=== PATIENT | female | born 1960 | race Native Hawaiian/Other Pacific Islander ===

== ENCOUNTER 2017-08-01 13:22 | Day surgery (SDC) | payer BC ==
[2017-08-01] MEDS ORDERED: FENTANYL PF 100MCG/2ML VIAL IV ONE (13:23)
[2017-08-01] MEDS ORDERED: LIDOCAINE 2% MDV (20MG/ML) 20ML VIAL IV ONE ×2 (13:23)
[2017-08-01] MEDS ORDERED: PROPOFOL 10 MG/ML VIAL IV ONE (13:23)
--- NOTE | 2017-08-02 13:20 | Operative Note ---
DATE OF SURGERY: 08/01/2017 OPERATION: ESOPHAGOGASTRODUODENOSCOPY with biopsy. PREOPERATIVE DIAGNOSIS: Dyspepsia. POSTOPERATIVE DIAGNOSIS: Normal EGD, rule out occult H pylori infection. PROCEDURE: After informed consent was obtained from the patient, she was placed in the left lateral decubitus position in the endoscopy suite, sedated and monitored by the department of anesthesia. Once sedated, a well-lubricated [id number] gastroscope was placed in the posterior oropharynx and under direct visualization passed to the proximal esophagus. The endoscope was advanced through the proximal, mid, and distal esophagus. The esophagus in its length as well as the GE junction, gastric body, antrum, pylorus, duodenal bulb, and sweep were unremarkable. J-turn view of the proximal stomach were unremarkable. The endoscope was then straightened. Random antral and gastric biopsies were obtained. The endoscope was removed from the patient with no new findings noted. RECOMMENDATIONS: I would suggest the patient undergo an abdominal ultrasound to rule out the possibility of occult cholelithiasis as the source for her bloating symptoms. She should continue her current medical program and await the results of biopsies. As always, thank you for allowing me to participate in the healthcare of your patients. CC: Dr. Lorenzo VILLAR
== END 2017-08-01 15:40 | disposition home or self-care (01) ==
LOC: HOP 13:22
PROVIDERS: ATTEND Internal Medicine Gastroenterology
DX: R10.13 Epigastric pain (principal); K21.9 Gastro-esophageal reflux disease without esophagitis
CPT/HCPCS: 43235; 00731; J3010

== ENCOUNTER 2018-06-19 08:26 | Day surgery (SDC) | payer BC ==
[2018-06-19] MEDS ORDERED: PROPOFOL 10 MG/ML VIAL IV ONE (08:27)
[2018-06-19] MEDS ORDERED: LIDOCAINE 2% MDV (20MG/ML) 20ML VIAL IV ONE (08:27)
--- NOTE | 2018-06-20 08:50 | Operative Note ---
DATE OF SURGERY: 06/19/18 OPERATION: COLONOSCOPY with random biopsy and photo. PREOPERATIVE DIAGNOSIS: Change in bowel habits and screening. POSTOPERATIVE DIAGNOSIS: Normal exam. Rule out microscopic colitis. COMPLICATIONS: None apparent. PREPARATION QUALITY: Good. ESTIMATED BLOOD LOSS: Minimum. SPECIMENS: Random colon. PROCEDURE: After informed consent was obtained from the patient, she was placed in the left lateral decubitus position in the endoscopy suite, sedated and monitored by the department of anesthesia. Digital rectal exam was unremarkable. A well-lubricated [id number] colonoscope was inserted into the rectum and advanced to the cecum. The cecum, cecal bulb, ileocecal valve, appendiceal orifice, ascending colon, transverse colon, descending colon, sigmoid colon, and rectum were free of inflammatory changes, mass lesions, or polyps. Forward and J-turn views of the rectum and anorectum were unremarkable. The endoscope was straightened, the rectal ampulla deflated, and the endoscope was removed. It should be noted random biopsies were obtained throughout the length of the colon to rule out microscopic colitis. RECOMMENDATIONS: We will await the results of tissue histology. The patient should otherwise undergo repeat exam in 10 years. As always, thank you for allowing me to participate in the healthcare of your patients. CC: Lorenzo Wolfe, DO VILLAR
== END 2018-06-19 09:36 | disposition home or self-care (01) ==
LOC: HOP 08:26
PROVIDERS: ATTEND Internal Medicine Gastroenterology
DX: R19.4 Change in bowel habit (principal)

== ENCOUNTER 2019-07-31 07:46 | Day surgery (SDC) | payer BC ==
[~2019-07-31 07:46] MED LIST: ACETAMINOPHEN 1,000 MG/100 ML BTL IVPB ONE; CEFAZOLIN 2 Gram 2 GM/50 ML BAG IVPB ONE
[2019-07-31] MEDS ORDERED: PROPOFOL 10 MG/ML VIAL IV ONE (07:47)
[2019-07-31] MEDS ORDERED: FENTANYL PF 100MCG/2ML VIAL IV ONE (07:47)
[2019-07-31] MEDS ORDERED: MIDAZOLAM HCL 2MG/2ML VIAL IV ONE (07:47)
[2019-07-31] MEDS ORDERED: LIDOCAINE 2% MDV (20MG/ML) 20ML VIAL IV ONE (07:47)
[2019-07-31] MEDS ORDERED: EPHEDRINE SULFATE 50 MG/ML ML IV ONE (07:47)
[2019-07-31] MEDS ORDERED: RINGERS SOLUTION,LACTATED 1,000 ML IV ONE ×2 (08:13→11:15)
[2019-07-31] MEDS ORDERED: BUPIVACAINE 0.5% (5MG/ML) PF 30ML VIAL SQ ONE (11:17)
[2019-07-31] MEDS ORDERED: LIDOCAINE 1% MPF 100MG/10ML STERILE-PAK AMPULE SQ ONE (11:17)
--- NOTE | 2019-08-03 09:14 | Operative Note ---
DATE OF SURGERY: 07/31/2019 PREOPERATIVE DIAGNOSIS: PAINFUL BUNION AND TAILOR'S BUNION DEFORMITY LEFT FOOT. POSTOPERATIVE DIAGNOSIS: PAINFUL BUNION AND TAILOR'S BUNIONS DEFORMITY LEFT FOOT. OPERATION: ANIVAL MARVIN BUNIONECTOMY AND MINI-REVERSED TAILOR'S BUNIONECTOMY BOTH LEFT FOOT WITH INTERNAL SCREW FIXATION. SURGEON: Gilberto Medina D.P.M. INDICATIONS FOR PROCEDURE: The patient had a painful tailor's bunion deformity left foot requiring surgical intervention. X-ray consistent with bunion deformity first metatarsal phalangeal joint and tailor's bunion deformity left foot. ANESTHESIA: Local with IV sedation. PROCEDURE IN DETAIL: The patient was brought into the Operating Room Suite and placed supine upon the operating room table. After successful IV sedation was achieved, a first metatarsal and fifth metatarsal block along with a tibial nerve block was given with a total of 30 ml of a 50/50 mixture of 1% Lidocaine plain and 0.5% Marcaine plain after alcohol prep. Padding was put on the left ankle. Pneumatic cuff was put in place. The left foot, ankle and leg were prepped and draped in the usual sterile manner and exsanguinated with an Esmarch and the tourniquet was raised to 250 mmHg. The incision was outline and made approximately 4 cm in length to the dorsomedial aspect of the bunion deformity first metatarsal phalangeal joint left foot. Sharp and blunt dissection was utilized to deepen the incision, all vital structures are identified and retracted without difficulty. An inverted L-capsulotomy was performed and reflected exposing a large bony prominence which was removed with a power sagittal saw cooled with saline maintaining the plantar sagittal groove. Sharp and blunt dissection was utilized to perform lateral capsulotomy, cutting of the deep transverse ligament of the adductor tendon and the ligament between the fibular sesamoid and the first metatarsal head was identified and released. An extensor digitorum hallucis tendon was isolated and cut. This allowed for pull and soft tissue reduction laterally. A 0.045 K-wire was then driven medial to lateral slightly plantar effects aiming towards the fifth metatarsal head perpendicular to the second metatarsal performed under C- arm. The plantar and dorsal Anival cuts were made and cooled with saline. Capital fragment was transposed 2-3 mm, and 0.045 K-wire removed. The capital fragment was fixated with two wires from the Osteomed set, driven from a distal dorsal to proximal plantar fascia and through the capital fragment into the first metatarsal. These were driven under C-arm guidance. The proximal cortices were drilled, wires measured at 20 and 16 mm. One 2.4 mm x 20 mm and one 2.4 mm x 16 mm headless cannulated Osteomed screw was driven in typical cannulated fashion. C-arm indicated reduction of the first intermetatarsal angle, good [id number] contact, screw is the appropriate length and in good position. The bony prominence through the residual medial shaft of the first metatarsal was removed with a power sagittal saw. There is still some slight lateral deviation of the great toe and therefore it was decided an Marvin osteotomy was required. Incision lengthened and deepened to the proximal phalanx. The ostium was reflected and vital structures retracted. Marvin osteotomy was performed in a medially based wedge fashion and distal cut first, proximal cut next, lateral hinge feathered, wedge of bone removed, hallux tilted medially temporarily fixated with a wire driven from a proximal medial to a distal lateral fashion under C-arm guidance. This wire measured at 18 mm and therefore one 2.4 mm x 18 mm cannulated headless Osteomed screw was driven in typical cannulated fashion which sharply corrected lateral deviation of the great toe. The wire was removed. C-arm indicated appropriate length and position of the screw with good [id number] contact of the osteotomy. Rectus first MPJ noted. Capsulorrhaphy performed. Wound flushed with copious amounts of sterile saline. Attention was then directed to the tailor's bunion, a layer incision outline and made approximately 3.5 cm in length to the dorsal lateral aspect of the tailor's bunion deformity on the left foot. Sharp and blunt dissection was utilized to deepen the incision. All vital structures are identified and retracted without difficulty. Inverted L-capsulotomy was performed exposing the bony prominence laterally which was removed with the power sagittal saw and cooled with saline. The plantar and dorsal mini-reversed Anival osteotomies were performed and cooled with saline. Capital fragment transposed 1-2 mm medially and temporarily fixated with a single wire from the Osteomed set, driven a distal dorsal to proximal plantar fascia into the capital fragment and to the metatarsal shaft. This was performed under C-arm guidance, the proximal cortex was drilled, the wire measured at 18 mm. One 2.4 mm x 18 mm headless cannulated Osteomed screw was driven in typical cannulated fashion. All screws bit threads distally. C- arm indicated reduction of the tailor's bunion deformity. Good [id number] contact and the screw was in good position and of the appropriate length. Shelf of bone laterally was removed with the power sagittal saw along the fifth metatarsal shaft. The wound was flushed with copious amounts of sterile saline. Capsule and subcu closed to both incisions in simple interrupted fashion with 3-0 and 4-0 Vicryl. The skin was closed in subcuticular fashion with 5-0 PDS reinforced in simple interrupted fashion with 4-0 nylon. A combination of sterile Adaptic, 4x4's, 4-inch Tomás, and Veto wrap were applied. The tourniquet was deflated to 0 mmHg. Hyperemic flush noted through the foot. The patient tolerated the procedure well and was transferred to the Recovery Room in stable condition without complaint with vascular status intact. She is to minimize ambulation with CAM boot and crutches, she can keep the extremity elevated, keep dressing clean, dry and intact. She can contact me by cell phone as needed and take pain medications as prescribed. She is to follow-up in the office in the next several days. JOB NUMBER: [id number] [facility]
== END 2019-07-31 13:25 | disposition home or self-care (01) ==
LOC: SUR 07:46
PROVIDERS: ATTEND Podiatrist
DX: M21.622 Bunionette of left foot (principal); M20.5X2 Other deformities of toe(s) (acquired), left foot; M79.672 Pain in left foot; R01.1 Cardiac murmur, unspecified
CPT/HCPCS: C1713; J3490; J7120